=== PATIENT | male | born 1960 | race Caucasian/White ===

== ENCOUNTER 2017-08-10 06:40 | Inpatient (IN) | payer MEDICARE ==
[~2017-08-10] VITALS: Ht 175.3 cm; Wt 85.7 kg
[2017-08-10] MEDS ORDERED: FLUO-191 PO (06:55)
[2017-08-10] MEDS ORDERED: GABA-533 PO (06:55)
[2017-08-10 07:46] LABS: BASOPHILS # (AUTO) 0.17 K/uL (0.00-0.20); BASOPHILS % (AUTO) 2.4 % (0.0-2.0); EOSINOPHILS # (AUTO) 0.21 K/uL (0.00-0.70); EOSINOPHILS % (AUTO) 2.88 % (1.0-6.0); HEMATOCRIT 44.4 % (41-53); HEMOGLOBIN 14.9 g/dL (13.5-17.5); LYMPHOCYTES # (AUTO) 2.4 K/uL (1.0-4.8); LYMPHOCYTES % (AUTO) 32.6 % (22.0-44.0); MEAN CORPUSCULAR HGB CONC 33.5 G/dL (31.0-37.0); MEAN CORPUSCULAR VOLUME 95 fL (80-100); MONOCYTES # (AUTO) 0.6 K/uL (0.1-1.0); MONOCYTES % (AUTO) 8.7 % (2.0-9.0); NEUTROPHILS # (AUTO) 3.9 K/uL (1.8-7.7); NEUTROPHILS % (AUTO) 53.5 % (40.0-70.0); PLATELET COUNT (AUTO) 337 K/uL (150-450); RED BLOOD CELL COUNT(AUTO) 4.65 MIL/uL (4.50-5.90); RED CELL DISTRIBUTION WIDTH 14.8 % (11.5-14.5); WHITE BLOOD COUNT (AUTO) 7.3 K/uL (4.5-11.0)
[2017-08-10 08:03] LABS: ALANINE AMINOTRANSFERASE 22 U/L (12-78); ANION GAP 13 mmol/L (8-16); ASPARTATE AMINOTRANSFERASE 18 U/L (15-37); BILIRUBIN,TOTAL 0.2 mg/dL (0.1-1.0); CALCIUM, TOTAL 8.4 mg/dL (8.8-10.5); CARBON DIOXIDE 26 mmol/L (22-29); CHLORIDE 105 mmol/L (98-107); CREATININE 0.48 mg/dL (0.60-1.30); GLOMERULAR FILTR. RATE CALC > 60 mL/min (>60); SODIUM SERUM 144 mmol/L (136-145); UREA NITROGEN, BLOOD 7 mg/dL (7-18)
[2017-08-10 08:06] LABS: POTASSIUM 2.6 mmol/L (3.5-5.1)
[2017-08-10] MEDS ORDERED: LORazepam 2 MG TABLET PO ONE (09:45)
[2017-08-10] MEDS ORDERED: ChlordiazePOXIDE HCL 25 MG CAPSULE PO PRN (10:45)
[2017-08-10] MEDS ORDERED: GuaiFENesin/D-METHORPHAN [SUGAR-FREE] 200-20MG/10 ML SYRUP UDCUP PO PRN (10:45)
[2017-08-10] MEDS ORDERED: CYANOCOBALAMIN 1,000 MCG/ML VIAL IM ONE (10:45)
[2017-08-10] MEDS ORDERED: POTASSIUM CHLORIDE 20 MEQ ER TABLET PO ONE (10:45)
[2017-08-10] MEDS ORDERED: LOPERAMIDE HCL 2 MG CAPSULE PO PRN (10:45)
[2017-08-10] MEDS ORDERED: ZOLPIDEM TARTRATE 10 MG TABLET PO PRN (10:45)
[2017-08-10 12:50] VITALS: BP 133/76
[2017-08-10 13:24] VITALS: BP 133/87
[2017-08-10] MEDS ORDERED: INFLUENZA VIRUS VACCINE QVS 2017-18 (3YR+)/PF 60 MCG/0.5 ML SYRINGE IM ONE (13:30)
[2017-08-10] MEDS ORDERED: PNEUMOCOCCAL VACCINE POLYVALENT 0.5 ML VIAL [PPSV23] IM ONE (13:30)
[2017-08-10 13:50] VITALS: BP_SYST 136; BP_SYST 140; BP_DIAS 78; BP_DIAS 80
[2017-08-10 14:50] VITALS: BP_SYST 128; BP_SYST 130; BP_DIAS 69; BP_DIAS 79
[2017-08-10 15:50] VITALS: BP 170/99
[2017-08-10] MEDS: THIAMINE HCL 100 MG TABLET PO SCH (16:22)
[2017-08-10] MEDS: GABAPENTIN 400 MG CAPSULE PO SCH (16:23)
[2017-08-10 18:04] VITALS: BP 141/88
[2017-08-10] MEDS: OLANZapine 5 MG TABLET PO SCH (20:39)
[2017-08-11] VITALS: BP 135/88
[2017-08-11 04:00] VITALS: BP 139/94
[2017-08-11] MEDS ORDERED: ChlordiazePOXIDE HCL 25 MG CAPSULE PO PRN (07:00)
[2017-08-11 07:26] LABS: ANION GAP 6 mmol/L (8-16); CALCIUM, TOTAL 8.9 mg/dL (8.8-10.5); CARBON DIOXIDE 30 mmol/L (22-29); CHLORIDE 105 mmol/L (98-107); CREATININE 0.62 mg/dL (0.60-1.30); GLOMERULAR FILTR. RATE CALC > 60 mL/min (>60); POTASSIUM 3.5 mmol/L (3.5-5.1); SODIUM SERUM 141 mmol/L (136-145); UREA NITROGEN, BLOOD 10 mg/dL (7-18)
[2017-08-11 08:00] VITALS: BP 147/95
[2017-08-11] MEDS: GABAPENTIN 400 MG CAPSULE PO SCH ×3 (08:45→16:42)
[2017-08-11] MEDS: FLUoxetine HCL 20 MG CAPSULE PO SCH (08:45)
[2017-08-11] MEDS: ChlordiazePOXIDE HCL 25 MG CAPSULE PO SCH ×4 (08:45→20:46)
[2017-08-11] MEDS: FOLIC ACID 1 MG TABLET PO SCH (08:45)
[2017-08-11] MEDS: MULTIVITAMINS WITH MINERALS, THERAPEUTIC TABLET PO SCH (08:45)
[2017-08-11] MEDS: THIAMINE HCL 100 MG TABLET PO SCH ×2 (08:45→16:42)
[2017-08-11] MEDS: OMEPRAZOLE 20 MG CAPSULE PO SCH (10:47)
[2017-08-11 12:10] VITALS: BP 140/73
[2017-08-11 16:45] VITALS: BP 130/78
[2017-08-11 16:59] VITALS: BP 130/78
[2017-08-11] MEDS ORDERED: ACETAMINOPHEN 325 MG TABLET PO PRN (18:30)
[2017-08-11] MEDS: IBUPROFEN 600 MG TABLET PO PRN (18:31)
[2017-08-11] MEDS: OLANZapine 5 MG TABLET PO SCH (20:46)
[2017-08-12 06:50] VITALS: BP 147/95
[2017-08-12 08:00] VITALS: BP 145/82
[2017-08-12] MEDS: ChlordiazePOXIDE HCL 25 MG CAPSULE PO SCH ×4 (09:14→21:54)
[2017-08-12] MEDS: FLUoxetine HCL 20 MG CAPSULE PO SCH (09:14)
[2017-08-12] MEDS: OMEPRAZOLE 20 MG CAPSULE PO SCH (09:14)
[2017-08-12] MEDS: FOLIC ACID 1 MG TABLET PO SCH (09:14)
[2017-08-12] MEDS: MULTIVITAMINS WITH MINERALS, THERAPEUTIC TABLET PO SCH (09:15)
[2017-08-12] MEDS: GABAPENTIN 400 MG CAPSULE PO SCH ×3 (09:15→17:18)
[2017-08-12] MEDS: THIAMINE HCL 100 MG TABLET PO SCH ×2 (09:15→17:19)
[2017-08-12 16:00] VITALS: BP 147/79
[2017-08-12] MEDS: OLANZapine 5 MG RAPDIS TABLET PO PRN (17:19)
[2017-08-12] MEDS: OLANZapine 5 MG TABLET PO SCH (21:55)
[2017-08-13] MEDS ORDERED: ChlordiazePOXIDE HCL 10 MG CAPSULE PO PRN (07:00)
[2017-08-13 07:33] VITALS: BP 135/91
[2017-08-13 07:37] VITALS: BP 135/91
[2017-08-13] MEDS: FOLIC ACID 1 MG TABLET PO SCH (08:39)
[2017-08-13] MEDS: ChlordiazePOXIDE HCL 10 MG CAPSULE PO SCH ×4 (08:39→21:06)
[2017-08-13] MEDS: FLUoxetine HCL 20 MG CAPSULE PO SCH (08:40)
[2017-08-13] MEDS: MULTIVITAMINS WITH MINERALS, THERAPEUTIC TABLET PO SCH (08:40)
[2017-08-13] MEDS: OMEPRAZOLE 20 MG CAPSULE PO SCH (08:40)
[2017-08-13] MEDS: THIAMINE HCL 100 MG TABLET PO SCH ×2 (08:40→16:43)
[2017-08-13] MEDS: GABAPENTIN 400 MG CAPSULE PO SCH ×3 (08:40→16:43)
[2017-08-13 09:22] VITALS: BP 153/87
[2017-08-13 09:23] VITALS: BP 153/87
[2017-08-13] MEDS: HydrOXYzine PAMOATE 50 MG CAPSULE PO PRN ×3 (13:10→13:51)
[2017-08-13] MEDS ORDERED: NITROGLYCERIN 0.4 MG SUBLINGUAL TABLET #25 SL ONE ×2 (13:30→13:43)
[2017-08-13] MEDS ORDERED: CloNIDine HCL 0.1 MG TABLET PO PRN (13:30)
[2017-08-13] MEDS ORDERED: METOPROLOL TARTRATE 25 MG TABLET ONE (13:42)
[2017-08-13] MEDS: METOPROLOL TARTRATE 25 MG TABLET PO SCH ×2 (13:47→16:43)
[2017-08-13 14:06] LABS: CREATINE KINASE, TOTAL 28 U/L (39-308)
[2017-08-13 17:00] VITALS: BP 149/96
[2017-08-13] MEDS: OLANZapine 10 MG TABLET PO SCH (21:07)
[2017-08-13] MEDS: TraZODone HCL 50 MG TABLET PO SCH (21:10)
[2017-08-14 06:22] VITALS: BP 121/84
[2017-08-14] MEDS ORDERED: ChlordiazePOXIDE HCL 10 MG CAPSULE PO PRN (07:00)
[2017-08-14 08:32] VITALS: BP 117/74
[2017-08-14 08:33] VITALS: BP 117/74
[2017-08-14] MEDS: THIAMINE HCL 100 MG TABLET PO SCH ×2 (09:07→16:44)
[2017-08-14] MEDS: OMEPRAZOLE 20 MG CAPSULE PO SCH (09:07)
[2017-08-14] MEDS: METOPROLOL TARTRATE 25 MG TABLET PO SCH ×2 (09:07→17:00)
[2017-08-14] MEDS: MULTIVITAMINS WITH MINERALS, THERAPEUTIC TABLET PO SCH (09:07)
[2017-08-14] MEDS: GABAPENTIN 400 MG CAPSULE PO SCH ×3 (09:07→16:44)
[2017-08-14] MEDS: FOLIC ACID 1 MG TABLET PO SCH (09:07)
[2017-08-14] MEDS: FLUoxetine HCL 20 MG CAPSULE PO SCH (09:07)
[2017-08-14 16:37] VITALS: BP 106/59
[2017-08-14 16:44] VITALS: BP 106/59
[2017-08-14] MEDS: OLANZapine 10 MG TABLET PO SCH (20:12)
[2017-08-14] MEDS: TraZODone HCL 50 MG TABLET PO SCH (20:12)
[2017-08-15 08:00] VITALS: BP 140/90
[2017-08-15] MEDS: THIAMINE HCL 100 MG TABLET PO SCH ×2 (08:49→16:31)
[2017-08-15] MEDS: METOPROLOL TARTRATE 25 MG TABLET PO SCH ×2 (08:49→16:31)
[2017-08-15] MEDS: FOLIC ACID 1 MG TABLET PO SCH (08:49)
[2017-08-15] MEDS: MULTIVITAMINS WITH MINERALS, THERAPEUTIC TABLET PO SCH (08:50)
[2017-08-15] MEDS: OMEPRAZOLE 20 MG CAPSULE PO SCH (08:50)
[2017-08-15] MEDS: FLUoxetine HCL 20 MG CAPSULE PO SCH (08:50)
[2017-08-15] MEDS: GABAPENTIN 400 MG CAPSULE PO SCH ×3 (08:50→16:31)
[2017-08-15 17:13] VITALS: BP 123/68
[2017-08-15] MEDS: OLANZapine 10 MG TABLET PO SCH (21:34)
[2017-08-15] MEDS: TraZODone HCL 50 MG TABLET PO SCH (21:34)
[2017-08-16] MEDS: OLANZapine 5 MG RAPDIS TABLET PO PRN (05:47)
[2017-08-16 05:52] VITALS: BP 110/75
[2017-08-16 08:00] VITALS: BP 110/71
[2017-08-16] MEDS: METOPROLOL TARTRATE 25 MG TABLET PO SCH ×2 (08:37→17:11)
[2017-08-16] MEDS: THIAMINE HCL 100 MG TABLET PO SCH ×2 (08:37→17:12)
[2017-08-16] MEDS: OMEPRAZOLE 20 MG CAPSULE PO SCH (08:37)
[2017-08-16] MEDS: MULTIVITAMINS WITH MINERALS, THERAPEUTIC TABLET PO SCH (08:37)
[2017-08-16] MEDS: FLUoxetine HCL 20 MG CAPSULE PO SCH (08:39)
[2017-08-16] MEDS: GABAPENTIN 400 MG CAPSULE PO SCH ×3 (08:39→17:11)
[2017-08-16] MEDS: FOLIC ACID 1 MG TABLET PO SCH (08:39)
[2017-08-16 16:34] VITALS: BP 106/68
[2017-08-16] MEDS: TraZODone HCL 50 MG TABLET PO SCH (20:31)
[2017-08-16] MEDS: OLANZapine 10 MG TABLET PO SCH (20:31)
[2017-08-17 07:07] VITALS: BP 134/67
[2017-08-17] MEDS: OLANZapine 5 MG RAPDIS TABLET PO PRN (08:29)
[2017-08-17] MEDS: FLUoxetine HCL 20 MG CAPSULE PO SCH (08:30)
[2017-08-17] MEDS: GABAPENTIN 400 MG CAPSULE PO SCH ×3 (08:30→16:17)
[2017-08-17] MEDS: METOPROLOL TARTRATE 25 MG TABLET PO SCH ×2 (08:30→16:18)
[2017-08-17] MEDS: MULTIVITAMINS WITH MINERALS, THERAPEUTIC TABLET PO SCH (08:30)
[2017-08-17] MEDS: THIAMINE HCL 100 MG TABLET PO SCH ×2 (08:30→16:18)
[2017-08-17] MEDS: OMEPRAZOLE 20 MG CAPSULE PO SCH (08:30)
[2017-08-17] MEDS: FOLIC ACID 1 MG TABLET PO SCH (08:30)
[2017-08-17 09:59] VITALS: BP 122/70
[2017-08-17 10:37] VITALS: BP 130/69
[2017-08-17] MEDS: IBUPROFEN 600 MG TABLET PO PRN (10:37)
[2017-08-17 11:00] VITALS: BP 92/51
[2017-08-17 17:54] VITALS: BP 108/60
[2017-08-17] MEDS: TraZODone HCL 50 MG TABLET PO SCH (20:20)
[2017-08-17] MEDS: OLANZapine 10 MG TABLET PO SCH (20:21)
[2017-08-18 06:35] VITALS: BP 118/70
[2017-08-18] MEDS: METOPROLOL TARTRATE 25 MG TABLET PO SCH ×2 (09:00→16:57)
[2017-08-18] MEDS: GABAPENTIN 400 MG CAPSULE PO SCH ×3 (09:31→16:58)
[2017-08-18] MEDS: FLUoxetine HCL 20 MG CAPSULE PO SCH (09:31)
[2017-08-18] MEDS: OMEPRAZOLE 20 MG CAPSULE PO SCH (09:31)
[2017-08-18] MEDS: FOLIC ACID 1 MG TABLET PO SCH (09:31)
[2017-08-18] MEDS: MULTIVITAMINS WITH MINERALS, THERAPEUTIC TABLET PO SCH (09:31)
[2017-08-18] MEDS: THIAMINE HCL 100 MG TABLET PO SCH ×2 (09:32→16:58)
[2017-08-18 10:06] VITALS: BP 111/67
[2017-08-18 17:00] VITALS: BP 105/80
[2017-08-18] MEDS: TraZODone HCL 50 MG TABLET PO SCH (20:22)
[2017-08-18] MEDS: OLANZapine 10 MG TABLET PO SCH (20:22)
[2017-08-19] MEDS: FOLIC ACID 1 MG TABLET PO SCH (08:29)
[2017-08-19] MEDS: MULTIVITAMINS WITH MINERALS, THERAPEUTIC TABLET PO SCH (08:29)
[2017-08-19] MEDS: THIAMINE HCL 100 MG TABLET PO SCH ×2 (08:29→16:43)
[2017-08-19] MEDS: OMEPRAZOLE 20 MG CAPSULE PO SCH (08:29)
[2017-08-19] MEDS: METOPROLOL TARTRATE 25 MG TABLET PO SCH ×2 (08:29→16:43)
[2017-08-19] MEDS: FLUoxetine HCL 20 MG CAPSULE PO SCH (08:29)
[2017-08-19] MEDS: GABAPENTIN 400 MG CAPSULE PO SCH ×3 (08:30→16:43)
[2017-08-19 10:22] VITALS: BP 116/75
[2017-08-19 18:07] VITALS: BP 117/74
[2017-08-19] MEDS: TraZODone HCL 50 MG TABLET PO SCH (20:14)
[2017-08-19] MEDS: OLANZapine 10 MG TABLET PO SCH (20:14)
[2017-08-20 07:03] VITALS: BP 132/85
[2017-08-20 08:01] VITALS: BP 134/71
[2017-08-20] MEDS: FLUoxetine HCL 20 MG CAPSULE PO SCH (08:12)
[2017-08-20] MEDS: OMEPRAZOLE 20 MG CAPSULE PO SCH (08:13)
[2017-08-20] MEDS: FOLIC ACID 1 MG TABLET PO SCH (08:13)
[2017-08-20] MEDS: MULTIVITAMINS WITH MINERALS, THERAPEUTIC TABLET PO SCH (08:13)
[2017-08-20] MEDS: METOPROLOL TARTRATE 25 MG TABLET PO SCH (08:13)
[2017-08-20] MEDS: THIAMINE HCL 100 MG TABLET PO SCH (08:13)
[2017-08-20] MEDS: GABAPENTIN 400 MG CAPSULE PO SCH ×2 (08:13→11:59)
[2017-08-20] MEDS ORDERED: OLAN10TA3 PO (11:03)
[2017-08-20] MEDS ORDERED: TRAZ-144 PO (11:03)
[2017-08-20] MEDS ORDERED: FLUO-191 PO (11:03)
[2017-08-20] MEDS ORDERED: METO25 PO (11:08)
[2017-08-20] MEDS ORDERED: MV-M1TAB2 PO (11:09)
[2017-08-20] MEDS ORDERED: OMEP20 PO (11:09)
[2017-10-20] MEDS ORDERED: FLUO-191 PO (10:32)
[2017-10-20] MEDS ORDERED: GABA-531 PO (10:33)
[2017-10-20] MEDS ORDERED: OLAN7.5T2 PO (10:33)
[2017-10-20] MEDS ORDERED: OMEP20 PO (10:33)
[2017-10-20] MEDS ORDERED: TRAZ-144 PO (10:34)
== END 2017-08-20 16:00 | disposition home or self-care (01) | DRG 885 ==
LOC: EMS 06:41 → 3EX 11:51
DX: F25.1 Schizoaffective disorder, depressive type (principal); R45.850 Homicidal ideations; R45.851 Suicidal ideations; Z89.612 Acquired absence of left leg above knee; E87.6 Hypokalemia; F10.20 Alcohol dependence, uncomplicated; F31.9 Bipolar disorder, unspecified; I10 Essential (primary) hypertension; K21.9 Gastro-esophageal reflux disease without esophagitis; Z59.0 Homelessness; Z79.899 Other long term (current) drug therapy; Z80.1 Family history of malignant neoplasm of trachea, bronchus and lung; Z82.49 Family history of ischemic heart disease and other diseases of the circulatory system; Z89.511 Acquired absence of right leg below knee; Z28.21 Immunization not carried out because of patient refusal
CPT/HCPCS: 93005; 97161; 97165; 99285; G0480; J3420

== ENCOUNTER 2017-10-03 15:59 | Inpatient (IN) | payer MEDICARE ==
[~2017-10-03] VITALS: Ht 175.3 cm; Wt 85.4 kg
[~2017-10-03 15:59] MED LIST: FLUO-191 PO; GABA-533 PO; METO25 PO; MV-M1TAB2 PO; OLAN10TA3 PO; OMEP20 PO; TRAZ-144 PO
[2017-10-03 16:36] LABS: BASOPHILS % (AUTO) 1.6 % (0.0-2.0); EOSINOPHILS % (AUTO) 1.1 % (1.0-6.0); HEMATOCRIT 39.7 % (41-53); HEMOGLOBIN 13.5 g/dL (13.5-17.5); LYMPHOCYTES # (AUTO) 3.2 K/uL (1.0-4.8); LYMPHOCYTES % (AUTO) 40.9 % (22.0-44.0); MEAN CORPUSCULAR HEMOGLOBIN 31.6 pg (26.0-34.0); MEAN CORPUSCULAR VOLUME 93 fL (80-100); MONOCYTES # (AUTO) 0.7 K/uL (0.1-1.0); MONOCYTES % (AUTO) 8.4 % (2.0-9.0); NEUTROPHILS # (AUTO) 3.7 K/uL (1.8-7.7); PLATELET COUNT (AUTO) 365 K/uL (150-450); RED BLOOD CELL COUNT(AUTO) 4.28 MIL/uL (4.50-5.90); RED CELL DISTRIBUTION WIDTH 13.5 % (11.5-14.5)
[2017-10-03 17:00] LABS: ALANINE AMINOTRANSFERASE 22 U/L (12-78); ALBUMIN 2.5 g/dL (3.4-5.0); ALKALINE PHOSPHATASE 81 U/L (46-116); ANION GAP 11 mmol/L (8-16); ASPARTATE AMINOTRANSFERASE 17 U/L (15-37); BILIRUBIN,TOTAL 0.2 mg/dL (0.1-1.0); CALCIUM, TOTAL 7.8 mg/dL (8.8-10.5); CARBON DIOXIDE 27 mmol/L (22-29); CHLORIDE 105 mmol/L (98-107); CREATININE 0.86 mg/dL (0.60-1.30); GLOMERULAR FILTR. RATE CALC > 60 mL/min (>60); GLUCOSE,RANDOM 129 mg/dL (70-110); SODIUM SERUM 143 mmol/L (136-145); TOTAL PROTEIN, SERUM 6.5 g/dL (6.4-8.2); UREA NITROGEN, BLOOD 9 mg/dL (7-18)
[2017-10-03] MEDS ORDERED: OLANZapine 5 MG RAPDIS TABLET PO PRN (17:00)
[2017-10-03] MEDS ORDERED: DiphenhydrAMINE HCL 50 MG/ML VIAL IM ONE (17:00)
[2017-10-03] MEDS ORDERED: LORazepam 2 MG/ML VIAL IM ONE (17:00)
[2017-10-03] MEDS ORDERED: HALOPERIDOL LACTATE 5 MG/ML VIAL IM ONE (17:00)
[2017-10-03] MEDS ORDERED: LORazepam 2 MG TABLET PO PRN (17:00)
[2017-10-03] MEDS ORDERED: ZOLPIDEM TARTRATE 10 MG TABLET PO PRN (17:00)
[2017-10-03 17:06] LABS: POTASSIUM 2.7 mmol/L (3.5-5.1)
[2017-10-03] MEDS ORDERED: POTASSIUM CHLORIDE 20 MEQ ER TABLET PO ONE ×2 (18:15→21:45)
[2017-10-03 21:37] VITALS: BP 126/78
[2017-10-03] MEDS: OLANZapine 10 MG TABLET PO SCH (21:48)
[2017-10-03] MEDS ORDERED: INFLUENZA VIRUS VACCINE QVS 2017-18 (3YR+)/PF 60 MCG/0.5 ML SYRINGE IM ONE (22:30)
[2017-10-03] MEDS ORDERED: PNEUMOCOCCAL VACCINE POLYVALENT 0.5 ML VIAL [PPSV23] IM ONE (22:30)
[2017-10-04 07:37] LABS: CHOL/HDL RATIO 3.3 (4.2-7.3); POTASSIUM 3.8 mmol/L (3.5-5.1)
[2017-10-04] MEDS: FLUoxetine HCL 20 MG CAPSULE PO SCH (08:39)
[2017-10-04] MEDS: BACITRACIN 28.4 GM OINTMENT TP SCH ×2 (11:37→17:03)
[2017-10-04 16:19] VITALS: BP 149/68
[2017-10-04] MEDS: OLANZapine 10 MG TABLET PO SCH (21:22)
[2017-10-05] VITALS (8 sets, daily range): BP systolic 136–160; BP diastolic 82–102
[2017-10-05] MEDS: FLUoxetine HCL 20 MG CAPSULE PO SCH (08:19)
[2017-10-05] MEDS: BACITRACIN 28.4 GM OINTMENT TP SCH ×2 (09:03→17:18)
[2017-10-05] MEDS ORDERED: GuaiFENesin/D-METHORPHAN [SUGAR-FREE] 200-20MG/10 ML SYRUP UDCUP PO PRN (10:15)
[2017-10-05] MEDS ORDERED: CYANOCOBALAMIN 1,000 MCG/ML VIAL IM ONE (10:15)
[2017-10-05] MEDS ORDERED: MAGNESIUM HYDROXIDE SUSPENSION 30 ML UDCUP PO PRN (10:15)
[2017-10-05] MEDS ORDERED: TUBERCULIN, PURIFIED PROTEIN DERIVATIVE 5 TU/0.1 ML SYG ID ONE (10:15)
[2017-10-05] MEDS ORDERED: MAG HYDROX/AL HYDROX/SIMETH ES 30 ML SUSPENSION UDCUP PO PRN (10:15)
[2017-10-05] MEDS ORDERED: PROMETHAZINE HCL 25 MG TABLET PO PRN (10:15)
[2017-10-05] MEDS ORDERED: LOPERAMIDE HCL 2 MG CAPSULE PO PRN ×2 (10:15)
[2017-10-05] MEDS ORDERED: ACETAMINOPHEN 325 MG TABLET PO PRN (10:15)
[2017-10-05] MEDS ORDERED: DIAZEPAM 10 MG TABLET PO PRN (10:15)
[2017-10-05] MEDS: GABAPENTIN 300 MG CAPSULE PO SCH ×3 (12:51→21:35)
[2017-10-05] MEDS: THIAMINE HCL 100 MG TABLET PO SCH (17:18)
[2017-10-05] MEDS ORDERED: CloNIDine HCL 0.1 MG TABLET PO PRN (17:30)
[2017-10-05] MEDS: TraZODone HCL 50 MG TABLET PO SCH (21:27)
[2017-10-05] MEDS: OLANZapine 7.5 MG TABLET PO SCH (21:27)
[2017-10-06 06:30] VITALS: BP 143/91
[2017-10-06 06:58] VITALS: BP 143/91
[2017-10-06] MEDS ORDERED: DIAZEPAM 10 MG TABLET PO PRN (07:00)
[2017-10-06] MEDS: DIAZEPAM 10 MG TABLET PO SCH ×4 (08:33→20:29)
[2017-10-06] MEDS: FLUoxetine HCL 20 MG CAPSULE PO SCH (08:33)
[2017-10-06] MEDS: MULTIVITAMINS WITH MINERALS, THERAPEUTIC TABLET PO SCH (08:33)
[2017-10-06] MEDS: GABAPENTIN 300 MG CAPSULE PO SCH ×4 (08:33→20:28)
[2017-10-06] MEDS: NALTREXONE HCL 50 MG TABLET PO SCH (08:33)
[2017-10-06] MEDS: FOLIC ACID 1 MG TABLET PO SCH (08:33)
[2017-10-06] MEDS: THIAMINE HCL 100 MG TABLET PO SCH ×2 (08:33→16:15)
[2017-10-06 08:53] VITALS: BP 136/75
[2017-10-06 10:30] VITALS: BP 137/83
[2017-10-06] MEDS: BACITRACIN 28.4 GM OINTMENT TP SCH ×2 (12:19→16:15)
[2017-10-06 14:32] VITALS: BP 135/87
[2017-10-06 16:30] VITALS: BP 148/92
[2017-10-06] MEDS: OLANZapine 7.5 MG TABLET PO SCH (20:28)
[2017-10-06] MEDS: TraZODone HCL 50 MG TABLET PO SCH (20:30)
[2017-10-07 08:27] VITALS: BP 140/87
[2017-10-07 08:30] VITALS: BP 140/87
[2017-10-07] MEDS: DIAZEPAM 10 MG TABLET PO SCH ×3 (09:16→16:25)
[2017-10-07] MEDS: GABAPENTIN 300 MG CAPSULE PO SCH ×4 (09:16→20:50)
[2017-10-07] MEDS: FLUoxetine HCL 20 MG CAPSULE PO SCH (09:16)
[2017-10-07] MEDS: MULTIVITAMINS WITH MINERALS, THERAPEUTIC TABLET PO SCH (09:16)
[2017-10-07] MEDS: FOLIC ACID 1 MG TABLET PO SCH (09:16)
[2017-10-07] MEDS: THIAMINE HCL 100 MG TABLET PO SCH ×2 (09:16→16:25)
[2017-10-07] MEDS: NALTREXONE HCL 50 MG TABLET PO SCH (09:16)
[2017-10-07] MEDS: BACITRACIN 28.4 GM OINTMENT TP SCH ×2 (09:17→16:25)
[2017-10-07 09:48] LABS: HEMOGLOBIN A1C 5.8 % (4.5-6.2)
[2017-10-07 10:04] LABS: CREATINE KINASE, TOTAL 28 U/L (39-308); FREE T4 (FREE THYROXINE) 0.58 ng/dL (0.76-1.46); THYROID STIMULATING HORMONE 1.58 uIU/mL (0.36-3.74)
[2017-10-07 12:00] LABS: FOLATE SERUM 12.1 ng/mL (5.4-)
[2017-10-07 16:00] VITALS: BP 121/82
[2017-10-07] MEDS: TraZODone HCL 50 MG TABLET PO SCH (20:50)
[2017-10-07] MEDS: OLANZapine 7.5 MG TABLET PO SCH (20:51)
[2017-10-08] MEDS ORDERED: DIAZEPAM 5 MG TABLET PO PRN (07:00)
[2017-10-08] MEDS: FLUoxetine HCL 20 MG CAPSULE PO SCH (08:40)
[2017-10-08] MEDS: MULTIVITAMINS WITH MINERALS, THERAPEUTIC TABLET PO SCH (08:40)
[2017-10-08] MEDS: FOLIC ACID 1 MG TABLET PO SCH (08:40)
[2017-10-08] MEDS: THIAMINE HCL 100 MG TABLET PO SCH ×2 (08:40→17:23)
[2017-10-08] MEDS: NALTREXONE HCL 50 MG TABLET PO SCH (08:40)
[2017-10-08] MEDS: GABAPENTIN 300 MG CAPSULE PO SCH ×4 (08:40→20:57)
[2017-10-08] MEDS: OLANZapine 5 MG RAPDIS TABLET PO PRN (08:46)
[2017-10-08] MEDS: HydrOXYzine PAMOATE 50 MG CAPSULE PO PRN (08:46)
[2017-10-08] MEDS ORDERED: DIAZEPAM 5 MG TABLET PO SCH (09:00)
[2017-10-08 09:15] VITALS: BP 143/91
[2017-10-08] MEDS: BACITRACIN 28.4 GM OINTMENT TP SCH ×2 (12:48→17:24)
[2017-10-08 16:00] VITALS: BP 127/80
[2017-10-08] MEDS: TraZODone HCL 50 MG TABLET PO SCH (20:57)
[2017-10-08] MEDS: OLANZapine 7.5 MG TABLET PO SCH (20:57)
[2017-10-09] MEDS ORDERED: DIAZEPAM 5 MG TABLET PO PRN (07:00)
[2017-10-09] MEDS: OLANZapine 5 MG RAPDIS TABLET PO PRN (07:59)
[2017-10-09] MEDS: NALTREXONE HCL 50 MG TABLET PO SCH (08:00)
[2017-10-09] MEDS: FOLIC ACID 1 MG TABLET PO SCH (08:00)
[2017-10-09] MEDS: GABAPENTIN 300 MG CAPSULE PO SCH ×4 (08:00→20:11)
[2017-10-09] MEDS: THIAMINE HCL 100 MG TABLET PO SCH ×2 (08:00→17:38)
[2017-10-09] MEDS: MULTIVITAMINS WITH MINERALS, THERAPEUTIC TABLET PO SCH (08:00)
[2017-10-09] MEDS: FLUoxetine HCL 20 MG CAPSULE PO SCH (08:01)
[2017-10-09] MEDS: HydrOXYzine PAMOATE 50 MG CAPSULE PO PRN (08:02)
[2017-10-09] MEDS: BACITRACIN 28.4 GM OINTMENT TP SCH ×2 (08:55→17:38)
[2017-10-09 10:25] VITALS: BP 124/90
[2017-10-09] MEDS: OLANZapine 7.5 MG TABLET PO SCH (20:12)
[2017-10-09] MEDS: TraZODone HCL 50 MG TABLET PO SCH (20:12)
[2017-10-10] MEDS: FLUoxetine HCL 20 MG CAPSULE PO SCH (08:52)
[2017-10-10] MEDS: THIAMINE HCL 100 MG TABLET PO SCH ×2 (08:52→17:10)
[2017-10-10] MEDS: OMEPRAZOLE 20 MG CAPSULE PO SCH (08:52)
[2017-10-10] MEDS: GABAPENTIN 300 MG CAPSULE PO SCH ×4 (08:52→21:22)
[2017-10-10] MEDS: FOLIC ACID 1 MG TABLET PO SCH (08:52)
[2017-10-10] MEDS: MULTIVITAMINS WITH MINERALS, THERAPEUTIC TABLET PO SCH (08:52)
[2017-10-10] MEDS: NALTREXONE HCL 50 MG TABLET PO SCH (08:53)
[2017-10-10] MEDS: BACITRACIN 28.4 GM OINTMENT TP SCH ×2 (08:53→17:11)
[2017-10-10 09:49] VITALS: BP 135/90
[2017-10-10 21:14] VITALS: BP 123/85
[2017-10-10] MEDS: OLANZapine 7.5 MG TABLET PO SCH (21:22)
[2017-10-10] MEDS: TraZODone HCL 50 MG TABLET PO SCH (21:22)
[2017-10-11 08:45] VITALS: BP 128/84
[2017-10-11] MEDS: BACITRACIN 28.4 GM OINTMENT TP SCH ×2 (09:00→16:27)
[2017-10-11] MEDS: GABAPENTIN 300 MG CAPSULE PO SCH ×4 (10:00→20:24)
[2017-10-11] MEDS: FOLIC ACID 1 MG TABLET PO SCH (10:00)
[2017-10-11] MEDS: NALTREXONE HCL 50 MG TABLET PO SCH (10:00)
[2017-10-11] MEDS: OMEPRAZOLE 20 MG CAPSULE PO SCH (10:00)
[2017-10-11] MEDS: THIAMINE HCL 100 MG TABLET PO SCH ×2 (10:00→16:27)
[2017-10-11] MEDS: FLUoxetine HCL 20 MG CAPSULE PO SCH (10:00)
[2017-10-11] MEDS: MULTIVITAMINS WITH MINERALS, THERAPEUTIC TABLET PO SCH (10:00)
[2017-10-11] MEDS: OLANZapine 5 MG RAPDIS TABLET PO PRN (18:21)
[2017-10-11] MEDS: LORazepam 1 MG TABLET PO PRN (18:47)
[2017-10-11 20:14] VITALS: BP 123/78
[2017-10-11] MEDS: TraZODone HCL 50 MG TABLET PO SCH (20:25)
[2017-10-11] MEDS: OLANZapine 7.5 MG TABLET PO SCH (20:25)
[2017-10-12 04:03] VITALS: BP 120/81
[2017-10-12] MEDS: BACITRACIN 28.4 GM OINTMENT TP SCH ×2 (09:00→17:00)
[2017-10-12] MEDS: FLUoxetine HCL 20 MG CAPSULE PO SCH (09:50)
[2017-10-12] MEDS: THIAMINE HCL 100 MG TABLET PO SCH ×2 (09:50→17:39)
[2017-10-12] MEDS: FOLIC ACID 1 MG TABLET PO SCH (09:50)
[2017-10-12] MEDS: NALTREXONE HCL 50 MG TABLET PO SCH (09:50)
[2017-10-12] MEDS: GABAPENTIN 300 MG CAPSULE PO SCH ×4 (09:50→21:13)
[2017-10-12] MEDS: MULTIVITAMINS WITH MINERALS, THERAPEUTIC TABLET PO SCH (09:50)
[2017-10-12] MEDS: LORazepam 1 MG TABLET PO PRN (09:51)
[2017-10-12] MEDS: OMEPRAZOLE 20 MG CAPSULE PO SCH (09:51)
[2017-10-12] MEDS: TraZODone HCL 50 MG TABLET PO SCH (21:13)
[2017-10-12] MEDS: OLANZapine 7.5 MG TABLET PO SCH (21:13)
[2017-10-13 08:15] VITALS: BP 133/73
[2017-10-13] MEDS: BACITRACIN 28.4 GM OINTMENT TP SCH ×2 (09:00→17:01)
[2017-10-13] MEDS: OMEPRAZOLE 20 MG CAPSULE PO SCH (09:11)
[2017-10-13] MEDS: GABAPENTIN 300 MG CAPSULE PO SCH ×3 (09:11→16:40)
[2017-10-13] MEDS: FOLIC ACID 1 MG TABLET PO SCH (09:11)
[2017-10-13] MEDS: THIAMINE HCL 100 MG TABLET PO SCH ×2 (09:12→16:41)
[2017-10-13] MEDS: FLUoxetine HCL 20 MG CAPSULE PO SCH (09:12)
[2017-10-13] MEDS: NALTREXONE HCL 50 MG TABLET PO SCH (09:12)
[2017-10-13] MEDS: MULTIVITAMINS WITH MINERALS, THERAPEUTIC TABLET PO SCH (09:12)
[2017-10-13] MEDS: LORazepam 1 MG TABLET PO PRN (09:13)
[2017-10-13] MEDS ORDERED: FLUO-191 PO (14:05)
[2017-10-13] MEDS ORDERED: GABA-531 PO (14:06)
[2017-10-13] MEDS ORDERED: THIA100 PO (17:49)
[2017-10-13] MEDS ORDERED: FOLI1 PO (17:50)
[2017-10-13] MEDS ORDERED: MV-M1TAB2 PO (17:51)
[2017-10-13] MEDS ORDERED: OMEP20 PO (17:52)
[2017-10-13] MEDS ORDERED: NALT50TA6 PO (17:53)
[2017-10-20] MEDS ORDERED: FLUO-191 PO (10:32)
[2017-10-20] MEDS ORDERED: OLAN7.5T2 PO (10:33)
[2017-10-20] MEDS ORDERED: GABA-531 PO (10:33)
[2017-10-20] MEDS ORDERED: OMEP20 PO (10:33)
[2017-10-20] MEDS ORDERED: TRAZ-144 PO (10:34)
== END 2017-10-13 18:00 | disposition home or self-care (01) | DRG 885 ==
LOC: EMS 16:01 → 3EC 19:34 → 3EI 10-09 13:51
PROVIDERS: ADMIT Psychiatry & Neurology Psychiatry; ATTEND Psychiatry & Neurology Psychiatry
DX: F25.1 Schizoaffective disorder, depressive type (principal); R45.851 Suicidal ideations; Z89.612 Acquired absence of left leg above knee; R45.850 Homicidal ideations; F10.239 Alcohol dependence with withdrawal, unspecified; F31.9 Bipolar disorder, unspecified; I10 Essential (primary) hypertension; F41.9 Anxiety disorder, unspecified; F15.10 Other stimulant abuse, uncomplicated; E66.9 Obesity, unspecified; E78.1 Pure hyperglyceridemia; F60.9 Personality disorder, unspecified; E87.6 Hypokalemia; K21.9 Gastro-esophageal reflux disease without esophagitis; R26.9 Unspecified abnormalities of gait and mobility; Z91.14 Patient's other noncompliance with medication regimen; Z59.0 Homelessness; Z89.511 Acquired absence of right leg below knee; Z80.1 Family history of malignant neoplasm of trachea, bronchus and lung; Z68.27 Body mass index [BMI] 27.0-27.9, adult
CPT/HCPCS: 80074; 82607; 82746; 83036; 83735; 84132; 84439; 84443; 96372; 99285; G0480; J1200; J1630; J2060; J3420